=== PATIENT | female | born 1995 | race Caucasian/White ===

== ENCOUNTER 2016-11-27 18:01 | Emergency (ER) | payer BC ==
[~2016-11-27] VITALS: Ht 172.7 cm; Wt 77.3 kg
[2016-11-27 18:05] VITALS: TEMP 99.6
[2016-11-27] MEDS ORDERED: TRI-SPRINTEC 281 TAB (18:07)
[2016-11-27] MEDS ORDERED: SEROQUEL 200MG200 MG PO (18:08)
[2016-11-27 18:46] LABS: BASO % 0.6 % (0.0-2.0); EOS # 0.1 (0.0-0.7); EOS % 1.2 % (0-4.0); GRAN # 3.6 (1.4-6.5); GRAN % 53.2 % (42.2-75.2); HEMATOCRIT 37.6 % (35.0-45.0); HEMOGLOBIN 12.7 g/dl (12.0-15.0); LYMPH # 2.4 (1.2-3.4); LYMPH % 35.8 % (20.0-51.0); MEAN CELL VOLUME 90 fl (80.0-95.0); MEAN CORPUSCULAR HEMOGLOBIN 31 pg (26.0-32.0); MEAN CORPUSCULAR HGB CONC 34 g/dl (33.0-37.0); MEAN PLATELET VOLUME 10.5 fl (7.4-10.4); MONO # 0.6 (0.1-0.6); MONO % 9.1 % (1.7-9.3); PLATELET COUNT 332 K/mm3 (130-400); RED BLOOD COUNT 4.17 M/mm3 (4.10-5.30); REDCELL DISTRIBUTION WIDTH-CV 12.6 % (11.5-14.5); WHITE BLOOD COUNT 6.7 K/mm3 (4.8-10.8)
[2016-11-27 18:55] LABS: PROTHROMBIN TIME 11.6 SECONDS (9.7-12.8)
[2016-11-27 18:58] LABS: PARTIAL THROMBOPLASTIN TIME 29.8 SECONDS (26.0-37.0)
[2016-11-27 19:58] VITALS: BP 120/66; PULSE 104
== END 2016-11-27 20:00 | disposition home or self-care (01) ==
LOC: COL.ER 18:01
PROVIDERS: Emergency Medicine
DX: K60.2 Anal fissure, unspecified (principal); K62.5 Hemorrhage of anus and rectum; F31.9 Bipolar disorder, unspecified

== ENCOUNTER 2017-11-13 22:38 | Emergency (ER) | payer BC ==
[~2017-11-13] VITALS: Ht 172.7 cm; Wt 81.8 kg
[~2017-11-13 22:38] MED LIST: SEROQUEL 200MG200 MG PO; TRI-SPRINTEC 281 TAB
[2017-11-13 22:42] VITALS: BP 168/87; TEMP 98.9
[2017-11-13 23:27] LABS: BASO % 0.4 % (0.0-2.0); EOS % 0.5 % (0-4.0); GRAN # 5.2 (1.4-6.5); GRAN % 62.5 % (42.2-75.2); HEMATOCRIT 35.6 % (37.0-47.0); HEMOGLOBIN 12.4 g/dl (12.5-16.0); LYMPH # 2.4 (1.2-3.4); LYMPH % 28.8 % (20.0-51.0); MEAN CELL VOLUME 88 fl (80.0-100.0); MEAN CORPUSCULAR HEMOGLOBIN 31 pg (27.0-31.0); MEAN CORPUSCULAR HGB CONC 35 g/dl (33.0-37.0); MEAN PLATELET VOLUME 10.6 fl (7.4-10.4); MONO # 0.6 (0.1-0.6); MONO % 7.7 % (1.7-9.3); PLATELET COUNT 318 K/mm3 (130-400); RED BLOOD COUNT 4.04 M/mm3 (4.10-5.30); REDCELL DISTRIBUTION WIDTH-CV 12.6 % (11.5-14.5)
[2017-11-13 23:29] LABS: BILIRUBIN,TOTAL 0.4 mg/dL (0.0-1.0); C-REACTIVE PROTEIN 0.9 mg/dL (0.0-0.9); CALCIUM 9.4 mg/dL (8.4-10.2); CREATININE, serum 0.63 mg/dL (0.52-1.25); POTASSIUM 3.5 mmol/L (3.4-5.0); TOTAL PROTEIN 8.2 gm/dL (6.4-8.2)
[2017-11-13 23:32] LABS: COLLECTION METHOD CLEAN CATCH
[2017-11-14] MEDS ORDERED: ZOFRAN ODT4 MG PO (00:03)
[2017-11-14 00:25] VITALS: PULSE 97
[2017-11-14 02:16] LABS: MUCOUS Present /lpf; PH 6 (5-8); URINE APPEARANCE Hazy; URINE BACTERIA None Seen /hpf; URINE BILIRUBIN Negative (NEGATIVE); URINE BLOOD Negative (NEGATIVE); URINE COLOR Yellow; URINE GLUCOSE Negative (NEGATIVE); URINE KETONE Trace (NEGATIVE); URINE LEUKOCYTE ESTERASE Negative (NEGATIVE); URINE NITRATE Negative (NEGATIVE); URINE PROTEIN(semi-quant) Negative (NEGATIVE); URINE RBC 0-2 /hpf; URINE UROBILINOGEN Negative (NEGATIVE)
[2017-11-14] MEDS ORDERED: IMODIUM 2MG CAPS2 MG PO (10:38)
== END 2017-11-14 00:25 | disposition home or self-care (01) ==
LOC: COL.ER 22:38
PROVIDERS: Physician Assistant
DX: R10.31 Right lower quadrant pain (principal)

== ENCOUNTER 2017-11-14 10:13 | Emergency (ER) | payer BC ==
[~2017-11-14] VITALS: Ht 172.7 cm; Wt 85.5 kg
[~2017-11-14 10:13] MED LIST changes: +ZOFRAN ODT4 MG PO
[2017-11-14 10:23] VITALS: BP 131/80; TEMP 98.5
[2017-11-14] MEDS ORDERED: IMODIUM 2MG CAPS2 MG PO (10:38)
[2017-11-14 12:04] VITALS: PULSE 83
== END 2017-11-14 12:05 | disposition home or self-care (01) ==
LOC: COL.ER 10:13
DX: R10.11 Right upper quadrant pain (principal); F31.9 Bipolar disorder, unspecified